=== PATIENT | male | born 1960 | race Caucasian/White ===

== ENCOUNTER 2017-07-19 10:45 | Emergency (ER) | payer BC, OTHER ==
[2017-07-19] MEDS ORDERED: Fentanyl 100 MCG/2 ML VIAL ONE (10:51)
[2017-07-19] MEDS ORDERED: Adacel (T-DAP) 0.5 ML VIAL ONE (10:52)
[2017-07-19] MEDS ORDERED: ISOVUE-370 76%-LOCM 1 ML ONE (13:34)
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
== END 2017-07-19 12:59 | disposition home or self-care (01) ==
LOC: ERS 10:45
DX: S01.312A Laceration without foreign body of left ear, initial encounter (principal); S30.811A Abrasion of abdominal wall, initial encounter; S40.212A Abrasion of left shoulder, initial encounter; S40.211A Abrasion of right shoulder, initial encounter; I10 Essential (primary) hypertension; F17.290 Nicotine dependence, other tobacco product, uncomplicated; V48.5XXA Car driver injured in noncollision transport accident in traffic accident, initial encounter
CPT/HCPCS: 12013; 70450; 71260; 72125; 74177; 90471; 90715; G0390; J3010

== ENCOUNTER 2018-12-24 15:07 | Outpatient (CLI) | payer OTHER ==
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
== END 2018-12-24 15:08 | disposition home or self-care (01) ==
LOC: BICMRI 15:07
PROVIDERS: ATTEND Psychiatry & Neurology Neurology
DX: S06.890A Other specified intracranial injury without loss of consciousness, initial encounter (principal); I67.82 Cerebral ischemia
CPT/HCPCS: 70553; 82565